=== PATIENT | male | born 1970 | race Caucasian/White ===

== ENCOUNTER 2017-08-07 08:12 | Inpatient (IN) | payer BC ==
[2017-08-07] MEDS ORDERED: Clindamycin/D5W 900 mg/50 ml Premix Bag ONE (08:24)
[2017-08-07] MEDS ORDERED: Levofloxacin 500 mg/D5W 100 ml Premix Bag ONE (08:27)
[2017-08-07] MEDS ORDERED: Heparin 10,000 UNITS/1 ML VIAL 30,000 UNITS in Sodium Chloride 0.9% 1,000 ML FS SCH (08:30)
[2017-08-07 09:08] LABS: #Basophils 0.1 thou/uL (0.0-0.2); #Eosinphils 0.2 thou/uL (0.0-0.7); #Lymphocytes 2.3 thou/uL (1.20-3.40); #Monocytes 0.5 thou/uL (0.11-0.59); #Neutrophils 4.5 thou/uL (1.40-6.50); %Basophils 0.7 % (0.0-1.0); %Eosinophils 2.5 % (0.0-10.0); %Lymphocytes 30.3 % (21.0-51.0); %Monocytes 6.8 % (0.0-10.0); %Neutrophils 59.7 % (42.0-75.0); Hemoglobin 14.7 g/dL (14.0-18.0); Mean Corpuscular HGB CONC 34.8 g/dL (32.0-36.0); Mean Corpuscular Hemoglobin 33.8 pg (27.0-31.0); Mean Corpuscular Volume 97.1 fl (80.0-94.0); Mean Platelet Volume 7.4 fL (7.4-10.4); Platelet Count 242 thou/uL (130-400); RBC Distribution Width 11.4 % (11.5-14.5); Red Blood Cell (RBC) Count 4.35 mill/uL (4.70-6.10); White Blood Cell (WBC) Count 7.5 thou/uL (4.8-10.8)
[2017-08-07 09:12] LABS: Anion Gap 14 mmol/L (10-20); BUN (Urea Nitrogen) 10 mg/dL (8.9-20.6); Calc. Creatinine Clearance 185 mL/min (70-130); Calcium 9.9 mg/dL (7.8-10.44); Carbon Dioxide 25 mmol/L (22-29); Chloride 101 mmol/L (98-107); Estimated GFR-MDRD Greater than 90; Glucose 190 mg/dL (70-105); INR-International Normal Ratio 1.1; PTT 28.3 SEC (22.9-36.1); Potassium 4.4 mmol/L (3.5-5.1); Prothrombin Time 13.8 SEC (12.0-14.7); Sodium 136 mmol/L (136-145)
[2017-08-07] MEDS ORDERED: Midazolam HCl 5 mg/5 ml Vial ONE (09:38)
[2017-08-07] MEDS ORDERED: Fentanyl 100 MCG/2 ML VIAL ONE ×2 (09:38)
[2017-08-07] MEDS ORDERED: Midazolam HCl 2 mg/2 ml Vial ONE (10:00)
--- NOTE | 2017-08-07 10:13 | RAD ---
CHEST ONE VIEW: History: Pre op. Comparison: 08-12-16 FINDINGS: Lungs are hypoinflated. There is elevation of right hemidiaphragm with compressive atelectasis of the right lower lobe. No pneumothorax. Cardiomediastinal silhouette contour is similar. No acute osseous abnormality. IMPRESSION: Lung hypoinflation with elevation of the right hemidiaphragm with compressive atelectasis. No signifi cant change. POS: OFF
[2017-08-07] MEDS ORDERED: Albumin 5% 500 ML ONE (10:55)
[2017-08-07] MEDS ORDERED: Insulin Regular 300 UNITS/3 ML VIAL ONE (11:08)
[2017-08-07] MEDS ORDERED: EPINEPHrine 1 MG/ML AMP ONE (13:04)
[2017-08-07] MEDS ORDERED: Protamine Sulfate 250 MG/25 ML VIAL ONE (14:40)
[2017-08-07] MEDS ORDERED: Heparin 5,000 UNITS/ML VIAL ONE (14:40)
[2017-08-07] MEDS ORDERED: Magnesium 5 GM/10 ML VIAL ONE (14:40)
[2017-08-07] MEDS ORDERED: Papaverine 60 MG/2 ML VIAL ONE (14:40)
[2017-08-07] MEDS ORDERED: Potassium Chloride 60 MEQ/30 ML VIAL ONE (14:40)
[2017-08-07] MEDS ORDERED: Thrombin 5000 UNITS/5 ML VIAL ONE (14:40)
[2017-08-07] MEDS ORDERED: Lidocaine 2% PF 100 mg/5 ml Syringe ONE (14:40)
[2017-08-07] MEDS ORDERED: Esmolol 100 MG/10 ML VIAL ONE (14:40)
[2017-08-07] MEDS ORDERED: Heparin 30,000 units/30 ml VIAL ONE (14:40)
[2017-08-07] MEDS ORDERED: Lidocaine 1% PF 5 ML VIAL ONE (14:40)
[2017-08-07] MEDS ORDERED: PHENYLEPHRINE-NS 100 MCG/ML 10 ML SYRINGE ONE (14:40)
[2017-08-07] MEDS ORDERED: PROPOFOL 200 MG/20 ML VIAL ONE (14:40)
[2017-08-07] MEDS ORDERED: Aminocaproic Acid 5 GM/20 ML VIAL ONE (14:40)
[2017-08-07] MEDS ORDERED: Sodium Bicarb 50 MEQ/50 ML VIAL ONE (14:40)
[2017-08-07] MEDS ORDERED: Cardioplegic Soln 1,000 ML BAG ONE (14:40)
[2017-08-07] MEDS ORDERED: Calcium Chloride 1 GM/10 ML Abboject SYRINGE ONE (14:40)
[2017-08-07] MEDS ORDERED: Morphine 4 MG/ML Carpuject ONE (15:02)
[2017-08-07] MEDS ORDERED: Fentanyl 100 MCG/2 ML VIAL SLOW IVP PRN (15:03)
[2017-08-07] MEDS ORDERED: Nitroglycerin 50 MG/250 ML BOT 250 ML IVPB PRN (15:03)
[2017-08-07] MEDS ORDERED: Acetaminophen 325 MG TAB PO PRN (15:03)
[2017-08-07] MEDS ORDERED: Hetastarch 6% 500 ML 500 ML IVPB PRN (15:03)
[2017-08-07] MEDS ORDERED: Post-Op Insulin Drip Protocol IVPB ONE (15:03)
[2017-08-07] MEDS ORDERED: Promethazine HCl 25 MG/ML VIAL IM PRN (15:03)
[2017-08-07] MEDS ORDERED: Norepinephrine 8 MG/0.9% NS 250 ML IVPB PRN (15:03)
[2017-08-07] MEDS ORDERED: Bisacodyl 10 MG SUPP PR PRN (15:03)
[2017-08-07] MEDS ORDERED: hydrALAZINE 20 MG/ML VIAL SLOW IVP PRN (15:03)
[2017-08-07] MEDS ORDERED: Guaifenesin DM 100-10/5 ML UDCUP PO PRN (15:03)
[2017-08-07] MEDS ORDERED: Bisacodyl 5 MG TAB PO PRN (15:03)
[2017-08-07] MEDS ORDERED: Mag-Al 1200 mg/1200 mg/30 ML UDCUP PO PRN (15:03)
[2017-08-07] MEDS ORDERED: Insulin Regular 300 UNITS/3 ML VIAL SC PRN (15:10)
[2017-08-07 15:11] LABS: #Eosinphils 0.1 thou/uL (0.0-0.7); #Lymphocytes 2.8 thou/uL (1.20-3.40); #Monocytes 1.3 thou/uL (0.11-0.59); #Neutrophils 12.3 thou/uL (1.40-6.50); %Basophils 0.2 % (0.0-1.0); %Eosinophils 0.8 % (0.0-10.0); %Lymphocytes 16.8 % (21.0-51.0); %Monocytes 8.1 % (0.0-10.0); %Neutrophils 74.2 % (42.0-75.0); Hemoglobin 12.6 g/dL (14.0-18.0); Mean Corpuscular HGB CONC 33.6 g/dL (32.0-36.0); Mean Corpuscular Hemoglobin 33.5 pg (27.0-31.0); Mean Corpuscular Volume 99.8 fl (80.0-94.0); Mean Platelet Volume 7.3 fL (7.4-10.4); Platelet Count 194 thou/uL (130-400); RBC Distribution Width 11.5 % (11.5-14.5); Red Blood Cell (RBC) Count 3.76 mill/uL (4.70-6.10); White Blood Cell (WBC) Count 16.6 thou/uL (4.8-10.8)
--- NOTE | 2017-08-07 15:15 | OP ---
DATE OF PROCEDURE: 08/07/2017 PREOPERATIVE DIAGNOSES: Coronary artery disease/diabetes mellitus/tobacco abuse/hypertension/hyperli pidemia. POSTOPERATIVE DIAGNOSES: Coronary artery disease/diabetes mellitus/tobacco abuse/hypertension/hyperl ipidemia. PROCEDURES PERFORMED: Coronary artery bypass grafting x3 - 1. Left internal mammary artery to 1.25 mm LAD - good conduit and target. 2. Reversed saphenous vein to 2.5 mm OM - good conduit and target. 3. Reversed saphenous vein to 1.25 mm acute marginal - good conduit and target. Note, the PDA and P L systems were nonbypassable due to size. The diagonal was nonbypassable due to size. SURGEON: Dr. Milton Gonzalez, Dr. Mcmullen. ANESTHESIA: General endotracheal, Dr. Luke Gao. PUMP TIME: 92 minutes. CROSS-CLAMP TIME: 30 minutes. LOW CORE TEMPERATURE: 32 degrees Celsius. TOE FORMER: Araseli Myers. DRAINS: A 24-Belarusian chest tubes x2. DRIPS: Include epinephrine at 4 mcg per minute. TRANSFUSIONS: None. PROCEDURE IN DETAIL: After consent was obtained, the patient was brought to the operating room and p laced in the supine position on the operating room table. Appropriate anesthetic monitor was placed and general endotracheal anesthesia induced. Chest, abdomen, and legs were prepped and draped in usu al sterile fashion. Greater saphenous vein was harvested from the left lower extremity utilizing in endoscopic technique. Median sternotomy was performed. Left internal mammary artery was harvested a s a pedicle graft. The patient was systemically heparinized. Distal pedicle was divided and infused with papaverine. Thymic fat and pericardium were divided with electrocautery. Pericardial stay sut ures were placed. Aortic and atrial cannulation was performed. After adequate heparinization, retro grade prime was performed. The patient was then placed on cardiopulmonary bypass. Distal targets we re marked. Aortic cross-clamp was applied and antegrade sanguinous cardioplegic arrest obtained. On e liter of antegrade cold [place] cardioplegia was given. Topical cold solution was used. Reversed saphenous vein was anastomosed to the acute marginal end-to-side fashion with running 7-0 Prolene levine ture. Anastomosis was tested and was hemostatic. Reversed saphenous vein was anastomosed to the OM in end-to-side fashion with running 7-0 Prolene suture. Anastomosis was tested and was hemostatic. Mammary artery was brought through a window in the pericardium and anastomosed to the distal LAD in e nd-to-side fashion with running 7-0 Prolene suture. On release of the mammary clamp, there was good hooding in the anastomosis and good distal flow. Pedicle was secured with interrupted 6-0 Prolene levine ture. Cross-clamp was removed and partial occluding clamp placed. Saphenous vein to the OM was anas tomosed to punch site in the aorta. Saphenous vein to the acute marginal was anastomosed to the side wall of the OM graft. Partial occluding clamp was removed and anastomoses were inspected for hemosta sis, which was good. The patient was warmed and weaned from cardiopulmonary bypass. The patient was severely bradycardic, so ventricular pacing wires were placed. The patient was paced at 80 while we were warming, which took an extensive amount of time. The patient achieved temperature greater than 36.5 and sinus rhythm been obtained. Pacemaker was discontinued. The bypass was then terminated. Decannulation was performed and pursestring sutures secured. Protamine was administered. After adeq uate hemostasis had been obtained, vancomycin paste was placed on the sternal edges. A [address] tubes x2 were placed in the mediastinum. The sternum was closed with #7 wire. Sternum was treate d with platelet-rich plasma and wires twisted. The sternum was then treated with platelet-poor plasm a, and closed in multiple layers. The patient tolerated the procedure well, and was transferred to [facility] intensive care unit in stable, but critical condition. Needle, sponge, and instrument counts were all reported as correct at the end of the procedure.
[2017-08-07 15:25] LABS: INR-International Normal Ratio 1.4; PTT 29.2 SEC (22.9-36.1); Prothrombin Time 17.1 SEC (12.0-14.7)
[2017-08-07] MEDS ORDERED: Magnesium 2 GM/NS 0.9% 100 ML 2 GM in Premix Bag 1 BAG IVPB SCH (15:30)
[2017-08-07 15:43] LABS: Anion Gap 13 mmol/L (10-20); BUN (Urea Nitrogen) 9 mg/dL (8.9-20.6); Calc. Creatinine Clearance 187 mL/min (70-130); Calcium 7.6 mg/dL (7.8-10.44); Carbon Dioxide 21 mmol/L (22-29); Chloride 108 mmol/L (98-107); Estimated GFR-MDRD Greater than 90; Glucose 170 mg/dL (70-105); Potassium 3.6 mmol/L (3.5-5.1); Sodium 138 mmol/L (136-145)
--- NOTE | 2017-08-07 15:50 | RAD ---
CHEST ONE VIEW: 08/07/17 HISTORY: Post open heart surgery. COMPARISON: Chest radiograph same day. FINDINGS: The patient is intubated. Endotracheal tube tip is above the level of the kathy approximately 1.5 cm . Atelectatic changes of both lung bases. Thoracostomy drain and mediastinal drains are present. No l arge pneumothorax. IMPRESSION: Expected postoperative findings without complication. POS: OFF
[2017-08-07] MEDS: Potassium Chloride 20 MEQ/100 ML PREMIX BAG IVPB PRN ×2 (16:00→22:30)
[2017-08-07] MEDS: D5 1/2 NS w/20 mEq KCL 1,000 ML IV SCH (16:02)
[2017-08-07] MEDS: Ketorolac Tromethamine 30 MG/ML VIAL IVP SCH ×2 (17:59→22:59)
[2017-08-07] MEDS: Clindamycin/D5W 900 MG in Premix Bag 1 BAG IVPB SCH (19:46)
[2017-08-07 20:16] LABS: Hemoglobin 12.5 g/dL (14.0-18.0)
[2017-08-07] MEDS: Fentanyl 100 MCG/2 ML VIAL SLOW IVP PRN (20:20)
[2017-08-07] MEDS: Ondansetron HCl/PF 4 MG/2 ML Vial IVP PRN (20:25)
[2017-08-07] MEDS: Hydrocortisone Sod Succ/PF 100 mg/2 ml Vial IVP SCH (20:26)
[2017-08-07 20:29] LABS: Potassium 3.8 mmol/L (3.5-5.1)
[2017-08-07] MEDS ORDERED: Famotidine/PF 20 mg/2ml Vial SLOW IVP SCH (21:00)
[2017-08-08] MEDS: Fentanyl 100 MCG/2 ML VIAL SLOW IVP PRN ×3 (01:19→10:17)
[2017-08-08] MEDS: Clindamycin/D5W 900 MG in Premix Bag 1 BAG IVPB SCH ×3 (01:25→14:21)
[2017-08-08] MEDS: HYDROcodone/Acetaminophen 5/325 mg Tablet PO PRN ×3 (03:23→15:25)
[2017-08-08] MEDS: Ondansetron HCl/PF 4 MG/2 ML Vial IVP PRN (03:23)
[2017-08-08 04:17] LABS: #Lymphocytes 1.2 thou/uL (1.20-3.40); #Monocytes 1.1 thou/uL (0.11-0.59); #Neutrophils 12.9 thou/uL (1.40-6.50); %Basophils 0.3 % (0.0-1.0); %Eosinophils 0.1 % (0.0-10.0); %Lymphocytes 7.6 % (21.0-51.0); %Monocytes 7.2 % (0.0-10.0); %Neutrophils 84.9 % (42.0-75.0); Hemoglobin 11.5 g/dL (14.0-18.0); Mean Corpuscular HGB CONC 33.5 g/dL (32.0-36.0); Mean Corpuscular Hemoglobin 33.4 pg (27.0-31.0); Mean Corpuscular Volume 99.6 fl (80.0-94.0); Mean Platelet Volume 7.1 fL (7.4-10.4); Platelet Count 215 thou/uL (130-400); RBC Distribution Width 11.6 % (11.5-14.5); Red Blood Cell (RBC) Count 3.43 mill/uL (4.70-6.10); White Blood Cell (WBC) Count 15.2 thou/uL (4.8-10.8)
[2017-08-08 04:38] LABS: Anion Gap 11 mmol/L (10-20); BUN (Urea Nitrogen) 14 mg/dL (8.9-20.6); Calc. Creatinine Clearance 159 mL/min (70-130); Calcium 8.1 mg/dL (7.8-10.44); Carbon Dioxide 21 mmol/L (22-29); Chloride 109 mmol/L (98-107); Estimated GFR-MDRD 90; Glucose 138 mg/dL (70-105); Potassium 4.3 mmol/L (3.5-5.1); Sodium 137 mmol/L (136-145)
[2017-08-08] MEDS: Ketorolac Tromethamine 30 MG/ML VIAL IVP SCH ×3 (05:40→18:05)
[2017-08-08] MEDS: Budesonide 0.5 MG/2 ML NEB INH SCH ×2 (06:47→18:21)
[2017-08-08] MEDS ORDERED: Dextrose 50% Abboject 50 ML SYRINGE SLOW IVP PRN (07:18)
[2017-08-08] MEDS ORDERED: Dextrose 5% in Water 1,000 ML IV PRN (07:18)
--- NOTE | 2017-08-08 08:16 | RAD ---
PORTABLE CHEST 1 VIEW: DATE; 08/28/17. TIME: 4:57 a.m. HISTORY: Postop open heart surgery. FINDINGS: There has been interval removal of the endotracheal tube since the previous day's exam. Line and tub e placements are unchanged in position. Changes of median sternotomy are again seen. There is incre ased opacity in the left upper and mid lung zones. No pneumothoraces are seen. POS: JOANNE
[2017-08-08] MEDS: ALPRAZolam 0.5 MG TAB PO SCH ×3 (08:22→22:02)
[2017-08-08] MEDS: glyBURIDE 5 MG TAB PO SCH (08:22)
[2017-08-08] MEDS: Famotidine 20 MG TAB PO SCH ×2 (08:22→22:02)
[2017-08-08] MEDS: Hydrocortisone Sod Succ/PF 100 mg/2 ml Vial IVP SCH ×2 (08:22→22:01)
[2017-08-08] MEDS: Aspirin 325 MG TAB PO SCH (08:22)
[2017-08-08] MEDS: HumaLOG 300 UNITS/3 ML VIAL SC PRN ×2 (08:23→12:12)
[2017-08-08] MEDS: Magnesium 2 GM/NS 0.9% 100 ML 2 GM in Premix Bag 1 BAG IVPB SCH (08:23)
[2017-08-08] MEDS: Hydrochlorothiazide 25 MG TAB PO SCH (08:25)
[2017-08-08] MEDS: Insulin Detemir 100 UNITS/ML 30 UNITS in Pre-Filled Syringe 1 EACH SC SCH ×2 (08:41→08:46)
[2017-08-08 08:55] LABS: Cardiac Risk 3.7 (Less than 4.5)
--- NOTE | 2017-08-08 11:59 | CON ---
DATE OF CONSULTATION: 08/08/2017 SERVICE: Pulmonary Medicine. REASON FOR CONSULTATION: Respiratory failure. HISTORY OF PRESENT ILLNESS: The patient is a 46-year-old white male with past medical history significant for chronic respiratory failure. This is not a known diagnosis for him, though he has had difficulty breathing and getting around for quite some time. He was in his usual state of health when he presented to the hospital for an elective outpatient procedure. He underwent a coronary artery bypass graft x3 vessels. Prior to operation, intraoperatively and postoperatively, the patient had extraordinarily high requirements for oxygen. That being said, he is perfectly comfortable and breathing slowly. He denies any current shortness of breath, nausea, vomiting or chest discomfort. The postop course has been otherwise uncomplicated. He is on a very small dose of pressors at this point which is being weaned away aggressively. PAST MEDICAL HISTORY: 1. Type 2 diabetes mellitus. 2. Hypertension. 3. Dyslipidemia. 4. Gastroesophageal reflux disease. 5. Coronary artery disease. PAST SURGICAL HISTORY: 1. Elbow surgery. 2. Coronary artery bypass graft x3 vessels. ALLERGIES: PENICILLIN. MEDICATIONS: List of his inpatient medications was reviewed. No specific updates were made at this time. SOCIAL HISTORY: He smokes half pack a day and has done so for greater than 25 years. He drinks 6 pack on most days. Denies any illicit drugs. He has no exposure to chemicals, asbestos or tuberculosis FAMILY HISTORY: Noncontributory. REVIEW OF SYSTEMS: General, head, ears, eyes, nose, throat, cardiovascular, respiratory, GI, , musculoskeletal, neurologic and skin is negative except as mentioned in the HPI. PHYSICAL EXAMINATION: VITAL SIGNS: Afebrile, pulse 81, blood pressure 100/51, respirations 15, saturation 86% on 40% FiO2. GENERAL: The patient is awake and alert. He is in no apparent distress. LUNGS: Decreased air entry. That being said, I do not appreciate much in the way of a prolonged expiratory phase. There is no wheezing present. Crackles and rhonchi are both evident. HEART: Normal rate, regular. ABDOMEN: Soft, nontender, nondistended, bowel sounds positive. MUSCULOSKELETAL: No cyanosis or clubbing. No pitting in the bilateral lower extremities. NEUROLOGIC: Grossly nonfocal. LABORATORY DATA: WBC 15.2, hemoglobin 11.5, and platelets 215,000. INR 1.4. Basic metabolic profile is essentially unremarkable. Calcium 8.1. Blood sugars ranged from 105-162 IMAGING: Chest x-ray demonstrates evidence of sternotomy. Interval removal of the endotracheal tube. Low lung volumes are present, particularly on the right suggesting a likely area of atelectasis. There is also alveolar infiltrates in the left lung. Right subclavian central venous catheter terminates in good position. Thoracostomy drains are in place. ASSESSMENT: 1. Acute hypoxic respiratory failure. 2. Atelectasis of the right lower lobe. 3. Coronary artery disease, status post coronary artery bypass graft x3 vessels , postop day #1. 4. Type 2 diabetes mellitus, DISCUSSION AND PLAN: I think the patient is probably hypoxemic because of atelectasis. It is interesting that he is quite comfortable with his current condition. We will try to motivate him to move and cough vigorously. Hopefully , his hypoxemia will improve. Pulmonary or Critical Care will continue to follow for the time being. Supportive care including antibiotics, steroids and nebulized medications will be continued. 70 minutes have been devoted to this patient in various activities. I personally reviewed all imaging studies and laboratory data noted within this document. For at least half of this time, I was interacting with the patient at bedside or coordinating care with the care team. For the remainder of the time, I was immediately available to the patient in the hospital unit. VLADIMIR
[2017-08-08] MEDS: D5 1/2 NS w/20 mEq KCL 1,000 ML IV SCH (16:22)
[2017-08-08] MEDS: Rosuvastatin 20 MG TAB PO SCH (22:02)
[2017-08-09] MEDS: Ketorolac Tromethamine 30 MG/ML VIAL IVP SCH ×4 (00:38→17:02)
[2017-08-09 05:10] LABS: #Lymphocytes 2.1 thou/uL (1.20-3.40); #Monocytes 0.6 thou/uL (0.11-0.59); #Neutrophils 7.7 thou/uL (1.40-6.50); %Basophils 0.2 % (0.0-1.0); %Eosinophils 0.1 % (0.0-10.0); %Lymphocytes 19.8 % (21.0-51.0); %Monocytes 5.7 % (0.0-10.0); %Neutrophils 74.2 % (42.0-75.0); Hemoglobin 10.6 g/dL (14.0-18.0); Mean Corpuscular HGB CONC 33.5 g/dL (32.0-36.0); Mean Corpuscular Hemoglobin 33.6 pg (27.0-31.0); Mean Platelet Volume 7.2 fL (7.4-10.4); Platelet Count 151 thou/uL (130-400); RBC Distribution Width 11.6 % (11.5-14.5); Red Blood Cell (RBC) Count 3.17 mill/uL (4.70-6.10); White Blood Cell (WBC) Count 10.3 thou/uL (4.8-10.8)
[2017-08-09 05:24] LABS: Anion Gap 10 mmol/L (10-20); BUN (Urea Nitrogen) 15 mg/dL (8.9-20.6); Calc. Creatinine Clearance 182 mL/min (70-130); Calcium 8.1 mg/dL (7.8-10.44); Carbon Dioxide 24 mmol/L (22-29); Chloride 103 mmol/L (98-107); Estimated GFR-MDRD Greater than 90; Glucose 165 mg/dL (70-105); Sodium 132 mmol/L (136-145)
[2017-08-09] MEDS: HumaLOG 300 UNITS/3 ML VIAL SC PRN ×3 (06:06→17:04)
[2017-08-09] MEDS: Magnesium 2 GM/NS 0.9% 100 ML 2 GM in Premix Bag 1 BAG IVPB SCH (08:00)
[2017-08-09] MEDS: Aspirin 325 MG TAB PO SCH (08:01)
[2017-08-09] MEDS: glyBURIDE 5 MG TAB PO SCH (08:01)
[2017-08-09] MEDS: Hydrocortisone Sod Succ/PF 100 mg/2 ml Vial IVP SCH (08:02)
[2017-08-09] MEDS: Famotidine 20 MG TAB PO SCH ×2 (08:02→20:45)
[2017-08-09] MEDS: HYDROcodone/Acetaminophen 5/325 mg Tablet PO PRN ×2 (08:10→21:58)
[2017-08-09] MEDS: Budesonide 0.5 MG/2 ML NEB INH SCH ×2 (08:56→19:07)
[2017-08-09] MEDS ORDERED: Furosemide 40 MG/4 ML VIAL SLOW IVP SCH (09:15)
[2017-08-09] MEDS ORDERED: metFORMIN 500 MG TAB PO SCH (09:15)
[2017-08-09] MEDS: Hydrochlorothiazide 25 MG TAB PO SCH (09:45)
[2017-08-09] MEDS: ALPRAZolam 0.5 MG TAB PO SCH ×3 (10:38→20:45)
--- NOTE | 2017-08-09 10:53 | PRG ---
DATE OF SERVICE: 08/09/2017 SERVICE: Pulmonary Medicine. INTERVAL HISTORY: The patient has been up out of bed a couple times yesterday and today. He got a dose of Lasix and some Levaquin yesterday. Otherwise, he is returning to his usual state of health. He has no specific complaints of nausea or vomiting. He does not have any dyspnea except when he moves around. Otherwise, there has been no interval change to his condition. Nurse reports no events. PHYSICAL EXAMINATION: VITAL SIGNS: Afebrile, pulse 77, blood pressure 108/60, respirations 19, saturation 92% on 3 liters nasal cannula. GENERAL: Patient is awake, alert, in no apparent distress. LUNGS: Decent air entry. Crackles are present dependently. It worse on the right. HEART: Normal rate, regular. ABDOMEN: Soft, nontender, and nondistended. Bowel sounds are positive. MUSCULOSKELETAL: No cyanosis or clubbing. There is trace pitting in the bilateral lower extremities. NEUROLOGIC: Grossly nonfocal. LABORATORY DATA: WBC 10.3, hemoglobin 10.6, platelets 151,000. INR 1.4. Basic metabolic profile is essentially unremarkable except for sodium of 132. IMAGING: Chest x-ray demonstrates decreased air entry in the right lung. Pulmonary vascular congestion is otherwise identified. There is thoracotomy drain in good position on the left. Mediastinal drain cannot be identified on this film. There has been no significant interval change compared to yesterday. ASSESSMENT: 1. Acute hypoxic respiratory failure, improving. 2. Atelectasis of the right lower lobe. 3. Coronary artery disease, status post coronary artery bypass graft x3 vessels. 4. Postoperative day 2. 5. Type 2 diabetes mellitus. PLAN: We will continue treating possible acute bronchitis with antibiotics, nebulized medications and steroids. The fluoroquinolone will be continued. MTDD
--- NOTE | 2017-08-09 10:54 | RAD ---
SEMIUPRIGHT PORTABLE CHEST: HISTORY: A 46-year-old male with a history of postop open heart. COMPARISON: 08/08/17. FINDINGS: Poor inspiratory effort. Right subclavian catheter and chest tube remain in place. Fairly extensive abnormal alveolar and interstitial opacity changes throughout the left lung and also involving the r ight upper lobe. Very poor inspiratory effort. No significant change from prior study. No pneumoth orax. IMPRESSION: Stable poor inspiratory effort with bilateral alveolar and interstitial opacity changes throughout th e left lung and involving the right upper lobe. Continued short-term followup for clearing or stabil ity. POS: FARTUN
[2017-08-09] MEDS: metFORMIN 500 MG TAB PO SCH (17:06)
[2017-08-09] MEDS: Rosuvastatin 20 MG TAB PO SCH (20:44)
[2017-08-10] MEDS: Ketorolac Tromethamine 30 MG/ML VIAL IVP SCH ×4 (00:33→17:34)
[2017-08-10 04:31] LABS: #Eosinphils 0.1 thou/uL (0.0-0.7); #Lymphocytes 2.5 thou/uL (1.20-3.40); #Monocytes 0.6 thou/uL (0.11-0.59); %Basophils 0.2 % (0.0-1.0); %Eosinophils 1.6 % (0.0-10.0); %Lymphocytes 29.8 % (21.0-51.0); %Monocytes 7.8 % (0.0-10.0); %Neutrophils 60.6 % (42.0-75.0); Hemoglobin 10.6 g/dL (14.0-18.0); Mean Corpuscular HGB CONC 34.1 g/dL (32.0-36.0); Mean Corpuscular Hemoglobin 33.7 pg (27.0-31.0); Mean Platelet Volume 7.2 fL (7.4-10.4); Platelet Count 169 thou/uL (130-400); RBC Distribution Width 11.4 % (11.5-14.5); Red Blood Cell (RBC) Count 3.14 mill/uL (4.70-6.10); White Blood Cell (WBC) Count 8.2 thou/uL (4.8-10.8)
[2017-08-10 05:03] LABS: Anion Gap 7 mmol/L (10-20); BUN (Urea Nitrogen) 16 mg/dL (8.9-20.6); Calc. Creatinine Clearance 186 mL/min (70-130); Calcium 8.2 mg/dL (7.8-10.44); Carbon Dioxide 28 mmol/L (22-29); Chloride 102 mmol/L (98-107); Estimated GFR-MDRD Greater than 90; Glucose 124 mg/dL (70-105); Potassium 3.7 mmol/L (3.5-5.1); Sodium 133 mmol/L (136-145)
[2017-08-10] MEDS: HumaLOG 300 UNITS/3 ML VIAL SC PRN (06:47)
[2017-08-10] MEDS: Budesonide 0.5 MG/2 ML NEB INH SCH ×2 (07:13→18:31)
[2017-08-10] MEDS: metFORMIN 500 MG TAB PO SCH ×2 (07:52→17:55)
[2017-08-10] MEDS: Aspirin 325 MG TAB PO SCH (07:52)
[2017-08-10] MEDS: glyBURIDE 5 MG TAB PO SCH (07:53)
[2017-08-10] MEDS: ALPRAZolam 0.5 MG TAB PO SCH ×3 (07:53→21:42)
[2017-08-10] MEDS: Famotidine 20 MG TAB PO SCH ×2 (07:54→21:37)
[2017-08-10] MEDS: Potassium Chloride 20 MEQ/100 ML PREMIX BAG IVPB PRN (07:54)
[2017-08-10] MEDS: HYDROcodone/Acetaminophen 5/325 mg Tablet PO PRN (09:34)
[2017-08-10] MEDS: Hydrochlorothiazide 25 MG TAB PO SCH ×2 (09:35→12:00)
--- NOTE | 2017-08-10 09:48 | RAD ---
CHEST 1 VIEW: History Heart surgery. Followup. COMPARISON: 08/09/17. FINDINGS: Cardiac silhouette remains magnified and enlarged. Pulmonary vasculature remains engorged. Mediasti num is midline with postoperative changes. Lines and tubes are unchanged in position. Left upper lo be infiltrate and right upper lobe infiltrate are improved compared to the prior study. No evidence of pneumothorax. IMPRESSION: Improved aeration of the upper lobes. Otherwise, stable postoperative appearance of the chest. POS: [facility]
[2017-08-10] MEDS ORDERED: Milk Of Magnesia 30 ML UDCUP PO PRN (10:47)
[2017-08-10] MEDS ORDERED: Bisacodyl 10 MG SUPP PR PRN (10:47)
[2017-08-10] MEDS ORDERED: Bisacodyl 5 MG TAB PO PRN (10:47)
[2017-08-10] MEDS ORDERED: Ondansetron HCl/PF 4 MG/2 ML Vial IVP PRN (10:47)
[2017-08-10] MEDS ORDERED: diphenhydrAMINE 25 MG CAP PO PRN (10:47)
[2017-08-10] MEDS ORDERED: Guaifenesin DM 100-10/5 ML UDCUP PO PRN (10:47)
[2017-08-10] MEDS ORDERED: Nitroglycerin 0.4 MG TAB 1 EACH SL PRN (10:47)
[2017-08-10] MEDS ORDERED: Zolpidem Tartrate 5 MG TAB PO PRN (10:47)
[2017-08-10] MEDS ORDERED: Artificial Tears 18 DROP/0.9 ML EA EYE PRN (10:47)
[2017-08-10] MEDS ORDERED: Mineral Oil ENEMA PR PRN (10:47)
[2017-08-10] MEDS ORDERED: Fentanyl 100 MCG/2 ML VIAL SLOW IVP PRN (10:47)
[2017-08-10] MEDS ORDERED: Dextrose 50% Abboject 50 ML SYRINGE SLOW IVP PRN (11:17)
[2017-08-10] MEDS ORDERED: Insulin Regular 300 UNITS/3 ML VIAL SC PRN (11:17)
[2017-08-10] MEDS ORDERED: Dextrose 5% in Water 1,000 ML IV PRN (11:17)
--- NOTE | 2017-08-10 12:21 | PRG ---
DATE OF SERVICE: 08/10/2017 SERVICE: Pulmonary Medicine. INTERVAL HISTORY: The patient is doing really well from a respiratory standpoint. He denies any cur rent fevers, chills, nausea, vomiting or chest discomfort. He has been weaned down to 1 liter nasal cannula and has no specific complaints. Ever since his chest tubes came out, he has had a much impro erwin air entry and has been able to more meaningfully participate with the incentive spirometer. PHYSICAL EXAMINATION: VITAL SIGNS: Afebrile, pulse 72, blood pressure 112/65, respirations 27, and saturation 94% on room air. GENERAL: The patient is awake, alert, no apparent distress. LUNGS: Decent air entry. There is no prolonged expiratory phase. I do not appreciate any wheezing. HEART: Normal rate, regular. ABDOMEN: Soft, nontender, nondistended. Bowel sounds positive. MUSCULOSKELETAL: No cyanosis or clubbing. No pitting in the bilateral lower extremities. NEUROLOGIC: Grossly nonfocal. LABORATORY DATA: WBC 8.2, hemoglobin 10.6, platelets 169,000. INR 1.4. Basic metabolic profile is otherwise unremarkable. IMAGING: Chest x-ray demonstrates reduced volumes on the right. There is a subclavian central venou s catheter that is in good position. Sternotomy wires in place. Interstitial and middle alveolar in filtrates are scattered throughout the left lung. Otherwise, there has been no significant change co mpared to prior. ASSESSMENT: 1. Acute hypoxic respiratory failure, resolving. 2. Atelectasis of the right lower lobe, suspected. 3. Coronary artery disease, status post coronary artery bypass graft x3 vessels, postop day #3. 4. Type 2 diabetes mellitus. 5. Acute bronchitis. PLAN: We will continue antibiotics and nebulized medications. I am going to hold off on the steroid s. We will continue focus on mobilizing the patient as much as he can tolerate. Hopefully, he can t ransition out of the ICU to telemetry unit today where he can continue working with cardiac rehabilit ation.
[2017-08-10] MEDS: Rosuvastatin 20 MG TAB PO SCH (21:37)
[2017-08-10] MEDS: HYDROcodone/Acetaminophen 10/325 mg Tablet PO PRN (23:40)
[2017-08-11] MEDS: Famotidine 20 MG TAB PO SCH ×3 (00:08→21:53)
[2017-08-11] MEDS: Budesonide 0.5 MG/2 ML NEB INH SCH ×2 (06:42→18:53)
[2017-08-11] MEDS ORDERED: Metolazone 5 MG TAB PO SCH (06:45)
--- NOTE | 2017-08-11 07:31 | PDOC.PULPN ---
Progress Note: Subj/Obj - Subjective Date: 08/11/17 Time: 07:30 Narrative: Chest sore, s/p CABG. Otherwise OK - ROS All systems: reviewed and no additional remarkable complaints except as stated - Objective Allergies/Adverse Reactions: Allergies Allergy/AdvReac Type Severity Reaction Status Date / Time Penicillins Allergy Swollen Verified 08/06/17 10:11 Lips Medications: Current Medications Hydrocodone Bitart/Acetaminophen (Kegley 10/325) 1 tab PO Q4H PRN PRN Reason: Pain Last Admin: 08/10/17 23:40 Dose: 1 tab Al Hydroxide/Mg Hydroxide (Maalox) 30 ml PO Q4H PRN PRN Reason: Indigestion Albuterol/Ipratropium (Duoneb) 3 ml EZPAP [id number] [facility] Last Admin: 08/11/17 06:39 Dose: 3 ml Alprazolam (Xanax) 0.5 mg PO TID [facility] Last Admin: 08/10/17 21:42 Dose: 0.5 mg Artificial Tears (Tears Naturale) 0 drop EA EYE PRN PRN PRN Reason: Dry Eyes Aspirin (Ecotrin) 325 mg PO DAILY [facility] Bisacodyl (Dulcolax) 10 mg PO Q12H PRN PRN Reason: Constipation Bisacodyl (Dulcolax) 10 mg CA Q12H PRN PRN Reason: Constipation Budesonide (Pulmicort Neb Solution) 0.5 mg INH BID-RT [facility] Last Admin: 08/11/17 06:42 Dose: 0.5 mg Dextrose/Water (Dextrose 50%) 25 gm SLOW IVP PRN PRN PRN Reason: PER HYPOGLYCEMIC PROTOCOL Diphenhydramine HCl (Benadryl) 25 mg PO Q6H PRN PRN Reason: Itching & Insomnia or [place] Cristian Famotidine (Pepcid) 20 mg PO BID [facility] Last Admin: 08/10/17 21:37 Dose: 20 mg Glucagon (Glucagon) 1 mg SC PRN PRN PRN Reason: PER HYPOGLYCEMIC PROTOCOL Glyburide (Diabeta) 2.5 mg PO DAILY [facility] Last Admin: 08/10/17 07:53 Dose: 2.5 mg Guaifenesin/Dextromethorphan (Robitussin Dm) 15 ml PO Q4H PRN PRN Reason: Cough Hydrochlorothiazide (Hydrochlorothiazide) 25 mg PO DAILY [facility] Last Admin: 08/10/17 12:00 Dose: 25 mg Dextrose/Water (D5w) 1,000 mls @ 0 mls/hr IV INF PRN; As Directed PRN Reason: PRN HYPOGLYCEMIC PROTOCOL Insulin Human Regular (Humulin R) 0 units SC Q4H PRN; Protocol PRN Reason: POST OP SLIDING SCALE Levofloxacin (Levaquin) 750 mg PO 0600 [facility] Stop: 08/12/17 06:01 Last Admin: 08/11/17 05:22 Dose: 750 mg Magnesium Hydroxide (Milk Of Magnesium) 30 ml PO Q12H PRN PRN Reason: Constipation Metformin HCl (Glucophage) 1,000 mg PO BID-[facility] Last Admin: 08/10/17 17:55 Dose: Not Given Metolazone (Zaroxolyn) 5 mg PO NOW [facility] Stop: 08/11/17 09:00 Mineral Oil (Fleet Mineral Oil) 133 ml CA DAILYPRN PRN PRN Reason: Constipation Nitroglycerin (Nitrostat) 0.4 mg SL Q5MIN PRN PRN Reason: Chest Pain Ondansetron HCl (Zofran) 4 mg IVP Q6H PRN PRN Reason: Nausea/Vomiting Potassium Chloride (Kcl) 20 meq IVPB PRN PRN PRN Reason: K level </= 4.0 Last Admin: 08/10/17 07:54 Dose: 20 meq Rosuvastatin Calcium (Crestor) 20 mg PO QPM [facility] Last Admin: 08/10/17 21:37 Dose: 20 mg Zolpidem Tartrate (Ambien) 5 mg PO HSPRN PRN PRN Reason: Insomnia SEP Reviewed: Yes Vital Signs: Vital Signs Temp 98.4 F 08/11/17 04:00 Pulse 73 08/11/17 06:39 Resp 16 08/11/17 06:39 BP 107/72 08/10/17 12:55 Pulse Ox 99 08/11/17 06:43 Intake & Output 08/10/17 08/11/17 08/11/17 18:59 06:59 18:59 Intake Total 735 540 Output Total 950 500 Balance -215 40 Weight 243 lb 9.773 oz 244 lb 4.355 oz Intake: Intake, IV Amount 95 Potassium Chloride 20 meq 95 IVPB PRN PRN Rx#: [id number] Oral 640 540 Output: Chest Tube Drainage 0 Mediastinal 0 Urine 700 500 Output, Malik 250 Stool 0 Other: Voiding Method Urinal Urinal Progress Note: Exam - Physical Exam Constitutional: NAD HEENT: PERRLA, sclera anicteric Neck: no nodes, no JVD Cardiovascular: RRR, no significant murmur Respiratory: clear to auscultation bilaterally Deviation from normal: Midline sternotomy scar, healing well Gastrointestinal: soft, non-tender, positive bowel sounds Musculoskeletal: edema present Neurological: non-focal, normal sensation, moves all 4 limbs Lymphatic: no nodes Psychiatric: normal affect, A&O x 3 Skin: no rash Progress Note: Data - Labs Result Diagrams: 08/10/17 04:00 08/10/17 04:00 Lab results: Laboratory Results 08/07/17 08/09/17 08/09/17 08:35 11:30 17:05 WBC RBC Hgb Hct MCV MCH MCHC RDW Plt Count MPV Neutrophils % Lymphocytes % Monocytes % Eosinophils % Basophils % Neutrophils # Lymphocytes # Monocytes # Eosinophils # Basophils # Sodium Potassium Chloride Carbon Dioxide Anion Gap BUN Creatinine Estimated GFR (MDRD) Glucose POC Glucose 220 H 151 H Calcium Crossmatch See Detail 08/09/17 08/10/17 08/10/17 20:30 04:00 04:00 WBC 8.2 RBC 3.14 L Hgb 10.6 L Hct 31.1 L MCV 99.0 H MCH 33.7 H MCHC 34.1 RDW 11.4 L Plt Count 169 MPV 7.2 L Neutrophils % 60.6 Lymphocytes % 29.8 Monocytes % 7.8 Eosinophils % 1.6 Basophils % 0.2 Neutrophils # 5.0 Lymphocytes # 2.5 Monocytes # 0.6 H Eosinophils # 0.1 Basophils # 0.0 Sodium 133 L Potassium 3.7 Chloride 102 Carbon Dioxide 28 Anion Gap 7 L BUN 16 Creatinine 0.77 Estimated GFR (MDRD) Greater than 90 Glucose 124 H POC Glucose 139 H Calcium 8.2 Crossmatch 08/10/17 08/10/17 08/10/17 06:45 11:34 21:40 WBC RBC Hgb Hct MCV MCH MCHC RDW Plt Count MPV Neutrophils % Lymphocytes % Monocytes % Eosinophils % Basophils % Neutrophils # Lymphocytes # Monocytes # Eosinophils # Basophils # Sodium Potassium Chloride Carbon Dioxide Anion Gap BUN Creatinine Estimated GFR (MDRD) Glucose POC Glucose 166 H 112 H 111 H Calcium Crossmatch 08/11/17 05:25 WBC RBC Hgb Hct MCV MCH MCHC RDW Plt Count MPV Neutrophils % Lymphocytes % Monocytes % Eosinophils % Basophils % Neutrophils # Lymphocytes # Monocytes # Eosinophils # Basophils # Sodium Potassium Chloride Carbon Dioxide Anion Gap BUN Creatinine Estimated GFR (MDRD) Glucose POC Glucose 90 Calcium Crossmatch Progress Note: A/P - Plan Plan: Assessment: Acute Bronchitis Hypoxemia Atelectasis s/p CABG DM2 Plan: increase activity as tolerated continue nebs wean oxygen Continuing levaquin
[2017-08-11] MEDS: Hydrochlorothiazide 25 MG TAB PO SCH (08:00)
[2017-08-11] MEDS: glyBURIDE 5 MG TAB PO SCH (08:00)
[2017-08-11] MEDS: Aspirin 325 mg Enteric Coated Tablet PO SCH (08:00)
[2017-08-11] MEDS: metFORMIN 500 MG TAB PO SCH ×2 (08:00→17:09)
[2017-08-11] MEDS: ALPRAZolam 0.5 MG TAB PO SCH ×3 (08:31→21:53)
[2017-08-11] MEDS: HYDROcodone/Acetaminophen 10/325 mg Tablet PO PRN ×3 (08:32→17:23)
[2017-08-11] MEDS: Rosuvastatin 20 MG TAB PO SCH (21:53)
[2017-08-12] MEDS: HYDROcodone/Acetaminophen 10/325 mg Tablet PO PRN ×4 (00:10→20:48)
[2017-08-12 05:35] VITALS: BMI 33.9
--- NOTE | 2017-08-12 07:39 | PDOC.PULPN ---
Progress Note: Subj/Obj - Subjective Date: 08/12/17 Time: 07:37 Narrative: No complaints - ROS All systems: reviewed and no additional remarkable complaints except as stated - Objective Allergies/Adverse Reactions: Allergies Allergy/AdvReac Type Severity Reaction Status Date / Time Penicillins Allergy Swollen Verified 08/06/17 10:11 Lips Medications: Current Medications Hydrocodone Bitart/Acetaminophen ([place] 10/325) 1 tab PO Q4H PRN PRN Reason: Pain Last Admin: 08/12/17 00:10 Dose: 1 tab Al Hydroxide/Mg Hydroxide (Maalox) 30 ml PO Q4H PRN PRN Reason: Indigestion Albuterol/Ipratropium (Duoneb) 3 ml EZPAP [id number] [facility] Last Admin: 08/12/17 01:59 Dose: 3 ml Alprazolam (Xanax) 0.5 mg PO TID [facility] Last Admin: 08/11/17 21:53 Dose: 0.5 mg Artificial Tears (Tears Naturale) 0 drop EA EYE PRN PRN PRN Reason: Dry Eyes Aspirin (Ecotrin) 325 mg PO DAILY [facility] Last Admin: 08/11/17 08:00 Dose: 325 mg Bisacodyl (Dulcolax) 10 mg PO Q12H PRN PRN Reason: Constipation Bisacodyl (Dulcolax) 10 mg NJ Q12H PRN PRN Reason: Constipation Budesonide (Pulmicort Neb Solution) 0.5 mg INH BID-RT [facility] Last Admin: 08/11/17 18:53 Dose: 0.5 mg Dextrose/Water (Dextrose 50%) 25 gm SLOW IVP PRN PRN PRN Reason: PER HYPOGLYCEMIC PROTOCOL Diphenhydramine HCl (Benadryl) 25 mg PO Q6H PRN PRN Reason: Itching & Insomnia or [place] Famotidine (Pepcid) 20 mg PO BID [facility] Last Admin: 08/11/17 21:53 Dose: 20 mg Glucagon (Glucagon) 1 mg SC PRN PRN PRN Reason: PER HYPOGLYCEMIC PROTOCOL Glyburide (Diabeta) 2.5 mg PO DAILY [facility] Last Admin: 08/11/17 08:00 Dose: 2.5 mg Guaifenesin/Dextromethorphan (Robitussin Dm) 15 ml PO Q4H PRN PRN Reason: Cough Hydrochlorothiazide (Hydrochlorothiazide) 25 mg PO DAILY [facility] Last Admin: 08/11/17 08:00 Dose: 25 mg Dextrose/Water (D5w) 1,000 mls @ 0 mls/hr IV INF PRN; As Directed PRN Reason: PRN HYPOGLYCEMIC PROTOCOL Insulin Human Regular (Humulin R) 0 units SC Q4H PRN; Protocol PRN Reason: POST OP SLIDING SCALE Magnesium Hydroxide (Milk Of Magnesium) 30 ml PO Q12H PRN PRN Reason: Constipation Last Admin: 08/11/17 12:26 Dose: 30 ml Metformin HCl (Glucophage) 1,000 mg PO BID-[facility] Last Admin: 08/11/17 17:09 Dose: 1,000 mg Mineral Oil (Fleet Mineral Oil) 133 ml NJ DAILYPRN PRN PRN Reason: Constipation Nitroglycerin (Nitrostat) 0.4 mg SL Q5MIN PRN PRN Reason: Chest Pain Ondansetron HCl (Zofran) 4 mg IVP Q6H PRN PRN Reason: Nausea/Vomiting Potassium Chloride (Kcl) 20 meq IVPB PRN PRN PRN Reason: K level </= 4.0 Last Admin: 08/10/17 07:54 Dose: 20 meq Rosuvastatin Calcium (Crestor) 20 mg PO QPM [facility] Last Admin: 08/11/17 21:53 Dose: 20 mg Zolpidem Tartrate (Ambien) 5 mg PO HSPRN PRN PRN Reason: Insomnia SEP Reviewed: Yes Vital Signs: Vital Signs Temp 98.4 F 08/12/17 04:00 Pulse 79 08/11/17 20:00 Resp 20 08/11/17 20:00 BP 122/77 08/11/17 13:12 Pulse Ox 94 L 08/12/17 01:59 Intake & Output 08/11/17 08/12/17 08/12/17 18:59 06:59 18:59 Intake Total 560 480 Output Total 1999 1275 Balance -1440 -795 Weight 236 lb 15.951 oz Intake: Oral 560 480 Output: Urine 1999 1275 Other: Voiding Method Urinal Urinal # Bowel Movements 0 Progress Note: Exam - Physical Exam Constitutional: NAD HEENT: PERRLA, sclera anicteric Neck: no nodes Cardiovascular: RRR Respiratory: clear to auscultation bilaterally Gastrointestinal: soft, non-tender Musculoskeletal: no edema, pulses present Neurological: non-focal, moves all 4 limbs Psychiatric: normal affect, A&O x 3 Skin: no rash Progress Note: Data - Labs Result Diagrams: 08/10/17 04:00 08/10/17 04:00 Progress Note: A/P - Plan Plan: Assessment: Acute Bronchitis Hypoxemia Atelectasis s/p CABG DM2 Plan: increase activity as tolerated continue nebs wean oxygen off if RA O2 sat>92% Continuing levaquin focus on IS
[2017-08-12] MEDS: Budesonide 0.5 MG/2 ML NEB INH SCH ×2 (08:24→19:15)
[2017-08-12] MEDS: Famotidine 20 MG TAB PO SCH ×2 (08:36→20:46)
[2017-08-12] MEDS: Hydrochlorothiazide 25 MG TAB PO SCH (08:37)
[2017-08-12] MEDS: ALPRAZolam 0.5 MG TAB PO SCH ×3 (08:37→20:48)
[2017-08-12] MEDS: Aspirin 325 mg Enteric Coated Tablet PO SCH (08:37)
[2017-08-12] MEDS: glyBURIDE 5 MG TAB PO SCH (08:37)
[2017-08-12] MEDS: metFORMIN 500 MG TAB PO SCH ×2 (08:37→16:44)
[2017-08-12] MEDS: Mag-Al 1200 mg/1200 mg/30 ML UDCUP PO PRN ×2 (08:43→20:52)
[2017-08-12] MEDS: Rosuvastatin 20 MG TAB PO SCH (20:46)
[2017-08-13] MEDS: HYDROcodone/Acetaminophen 10/325 mg Tablet PO PRN ×2 (06:06→13:49)
[2017-08-13] MEDS: Budesonide 0.5 MG/2 ML NEB INH SCH (07:34)
[2017-08-13 08:14] VITALS: TEMP 96.3
[2017-08-13] MEDS: Aspirin 325 mg Enteric Coated Tablet PO SCH (08:19)
[2017-08-13] MEDS: Famotidine 20 MG TAB PO SCH (08:19)
[2017-08-13] MEDS: ALPRAZolam 0.5 MG TAB PO SCH (08:20)
[2017-08-13] MEDS: glyBURIDE 5 MG TAB PO SCH (09:55)
[2017-08-13] MEDS: metFORMIN 500 MG TAB PO SCH (09:55)
--- NOTE | 2017-08-13 13:33 | DIS ---
DATE OF ADMISSION: 08/07/2017 DATE OF DISCHARGE: 08/13/2017 DIAGNOSES: 1. Coronary artery disease. 2. Hypertension. 3. Diabetes mellitus. 4. Hyperlipidemia. PROCEDURES: Coronary artery bypass grafting x3 -- 1. Left internal mammary artery to LAD. 2. Reversed saphenous vein to OM. 3. Reversed saphenous vein to acute marginal. DESCRIPTION OF HOSPITAL STAY: Mr. Spring was electively admitted for bypass. He has done well posto peratively except that he did not quit smoking until he was admitted to the hospital. He has had delilah e pulmonary dysfunction due to his continued tobacco abuse. He has been managed with both IV steroid s and now inhaled Pulmicort, which has greatly improved his oxygen levels. He has had no rhythm dist urbances. He is being discharged home in good condition to follow up with me in [address] Leti lizarraga in a month. DISCHARGE MEDICATIONS: Include: 1. Aspirin 325 mg daily. 2. Pulmicort 0.5 b.i.d. 3. Glyburide 2.5 mg daily. 4. Metformin 1000 mg b.i.d. 5. Hydrochlorothiazide 25 mg daily. 6. Metoprolol 25 mg b.i.d. 7. Crestor 20 mg at bedtime.
[2017-08-13 14:48] VITALS: BP 128/75
[2017-08-18 12:53] LABS: CO2 Tension 38.7 mmHg (35.0-45.0); O2 Tension (PaO2) 126.7 mmHg (80.0-100.0)
[2017-08-18 12:54] LABS: Actual Bicarbonate (HCO3a) 23.6 mEq/L (22-26); Base Excess (BEa) -0.9 mEq/L (0 (+/-) 2.5); Calcium, Ionized 1.1 mmol/L (1.12-1.30); Hematocrit-ABG 35.9 % (42.0-52.0)
[2017-08-18 12:55] LABS: Actual Bicarbonate (HCO3a) 22.8 mEq/L (22-26); Base Excess (BEa) -1.6 mEq/L (0 (+/-) 2.5); CO2 Tension 37.4 mmHg (35.0-45.0); Hematocrit-ABG 36.8 % (42.0-52.0); Hemoglobin (Hb) 12.3 g/dL (14.0-18.0); O2 Tension (PaO2) 107.6 mmHg (80.0-100.0)
[2017-08-18 12:55] LABS: Analyzer IN Cardio OR; Puncture Site ALINE
[2017-08-18 12:56] LABS: Actual Bicarbonate (HCO3v) 27 mEq/L (22-26); Analyzer IN Cardio OR; pH (venous) 7.38 (7.35-7.45)
[2017-08-18 12:56] LABS: Analyzer IN Cardio OR; Calcium, Ionized 1.1 mmol/L (1.12-1.30); Puncture Site ALINE
[2017-08-18 12:57] LABS: Base Excess 1.6 mEq/L (0 (+/- 2.5)); Calcium, Ionized 1.06 mmol/L (1.16-1.32); Chloride (ABG LAB) 101 mmol/L (98-106); Hematocrit-VBG 29.8 % (39-50); Hemoglobin (Hb) 10.4 g/dL (13.1-17.2); Potassium - ABG Lab 3.6 mmol/L (3.70-5.30)
[2017-08-18 12:58] LABS: Actual Bicarbonate (HCO3a) 24.5 mEq/L (22-26); Base Excess (BEa) -0.4 mEq/L (0 (+/-) 2.5); CO2 Tension 41.1 mmHg (35.0-45.0); Hematocrit-ABG 29.9 % (42.0-52.0); Hemoglobin (Hb) 10.5 g/dL (14.0-18.0); O2 Tension (PaO2) 424.9 mmHg (80.0-100.0); pH, Arterial 7.39 (7.35-7.45)
[2017-08-18 12:59] LABS: Analyzer IN Cardio OR; Calcium, Ionized 1.1 mmol/L (1.12-1.30); Puncture Site ALINE
[2017-08-18 13:00] LABS: Actual Bicarbonate (HCO3a) 23.7 mEq/L (22-26); Base Excess (BEa) -0.9 mEq/L (0 (+/-) 2.5); CO2 Tension 39.1 mmHg (35.0-45.0); Hematocrit-ABG 30.1 % (42.0-52.0); Hemoglobin (Hb) 10.6 g/dL (14.0-18.0); O2 Tension (PaO2) 460.5 mmHg (80.0-100.0)
[2017-08-18 13:01] LABS: Analyzer IN Cardio OR; Calcium, Ionized 1.1 mmol/L (1.12-1.30); Puncture Site ALINE
[2017-08-18 13:05] LABS: Actual Bicarbonate (HCO3a) 23.7 mEq/L (22-26); Base Excess (BEa) -1.1 mEq/L (0 (+/-) 2.5); CO2 Tension 39.7 mmHg (35.0-45.0); Hematocrit-ABG 28.2 % (42.0-52.0); Hemoglobin (Hb) 9.7 g/dL (14.0-18.0); O2 Tension (PaO2) 468.8 mmHg (80.0-100.0); pH, Arterial 7.39 (7.35-7.45)
[2017-08-18 13:06] LABS: CO2 Tension 37.7 mmHg (35.0-45.0); O2 Tension (PaO2) 82.1 mmHg (80.0-100.0); pH, Arterial 7.33 (7.35-7.45)
[2017-08-18 13:06] LABS: Analyzer IN Cardio OR; Calcium, Ionized 1.2 mmol/L (1.12-1.30); Puncture Site ALINE
[2017-08-18 13:07] LABS: Actual Bicarbonate (HCO3a) 19.3 mEq/L (22-26); Analyzer IN Cardio OR; Base Excess (BEa) -6.1 mEq/L (0 (+/-) 2.5); Hematocrit-ABG 29.8 % (42.0-52.0); Hemoglobin (Hb) 10.6 g/dL (14.0-18.0); Puncture Site ALINE
--- NOTE | 2017-10-06 21:47 | EKG ---
Test Reason : PREOP Blood Pressure : / mmHG Vent. Rate : 059 BPM Atrial Rate : 059 BPM P-R Int : 140 ms QRS Dur : 110 ms QT Int : 408 ms P-R-T Axes : 038 -31 014 degrees QTc Int : 403 ms Sinus bradycardia Left axis deviation Abnormal ECG Confirmed by CHELLE UREÑA M.D. ([id number]) on 10/06/2017 9:47:12 PM Referred By: Khadra LOPEZ Confirmed By:CHELLE UREÑA M.D.
--- NOTE | 2017-10-06 21:53 | EKG ---
Test Reason : POST CABG Blood Pressure : / mmHG Vent. Rate : 080 BPM Atrial Rate : 080 BPM P-R Int : 156 ms QRS Dur : 120 ms QT Int : 404 ms P-R-T Axes : 042 -76 -09 degrees QTc Int : 465 ms Normal sinus rhythm Left anterior fascicular block Abnormal ECG When compared with ECG of 07-AUG-2017 09:38, (Unconfirmed) QT has lengthened Confirmed by CHELLE UREÑA M.D. ([id number]) on 10/06/2017 9:53:30 PM Referred By: Khadra LOPEZ Confirmed By:CHELLE UREÑA M.D.
== END 2017-08-13 15:22 | disposition home or self-care (01) | DRG 235 ==
LOC: SURG A 08:12 → CCU 14:16 → 2NO 08-12 16:27
PROVIDERS: ADMIT Thoracic Surgery (Cardiothoracic Vascular Surgery); ATTEND Thoracic Surgery (Cardiothoracic Vascular Surgery)
PROC: 02100Z9 Bypass Coronary Artery, One Artery from Left Internal Mammary, Open Approach (ICD-10-PCS; principal; 2017-08-07)
PROC: 021109W Bypass Coronary Artery, Two Arteries from Aorta with Autologous Venous Tissue, Open Approach (ICD-10-PCS; 2017-08-07)
PROC: 06BQ4ZZ Excision of Left Saphenous Vein, Percutaneous Endoscopic Approach (ICD-10-PCS; 2017-08-07)
PROC: 5A1221Z Performance of Cardiac Output, Continuous (ICD-10-PCS; 2017-08-07)
DX: I25.10 Atherosclerotic heart disease of native coronary artery without angina pectoris (principal); J96.01 Acute respiratory failure with hypoxia; J98.11 Atelectasis; E11.9 Type 2 diabetes mellitus without complications; I10 Essential (primary) hypertension; F17.210 Nicotine dependence, cigarettes, uncomplicated; J20.9 Acute bronchitis, unspecified; Z79.84 Long term (current) use of oral hypoglycemic drugs; Z79.82 Long term (current) use of aspirin; E78.2 Mixed hyperlipidemia; K21.0 Gastro-esophageal reflux disease with esophagitis
CPT/HCPCS: 36415; 36416; 36430; 71045; 80048; 80061; 82805; 85025; 85610; 85730; 86850; 86900; 86901; 93005; 93010; 93798; 94002; 94640; J0171; J1642; J1644; J1720; J1815; J1885; J1940; J1956; J2001; J2250; J2270; J2405; J2440; J2704; J2720; J3010; J3370; J3475; J3480; J3490; J7050; J7070; J7620; J7626; P9045; S0017; S0028

== ENCOUNTER 2019-08-30 18:30 | Outpatient (CLI) | payer BC | END 2019-08-30 18:31 | disposition home or self-care (01) | LOC: SLEEPLAB 18:30 | PROVIDERS: ATTEND Family Medicine | DX: G47.33 Obstructive sleep apnea (adult) (pediatric) (principal); R53.83 Other fatigue; K21.9 Gastro-esophageal reflux disease without esophagitis; E66.9 Obesity, unspecified; R06.83 Snoring; I49.9 Cardiac arrhythmia, unspecified; I25.10 Atherosclerotic heart disease of native coronary artery without angina pectoris; E11.9 Type 2 diabetes mellitus without complications; I10 Essential (primary) hypertension; Z68.35 Body mass index [BMI] 35.0-35.9, adult | CPT/HCPCS: 95806 ==

== ENCOUNTER 2019-11-09 09:46 | Outpatient (CLI) | payer BC ==
--- NOTE | 2019-11-09 11:30 | ULT ---
ABDOMINAL ULTRASOUND: DATE: 11/09/2019. COMPARISON: None. HISTORY: Elevated liver function tests. TECHNIQUE: Multiplanar, harper scale, sonographic imaging of the abdomen provided. FINDINGS: Imaged aorta and IVC appear grossly unremarkable. Pancreas is not well assessed secondary to bowel g as. The hepatic parenchyma is heterogeneous and echogenic limiting assessment for focal liver lesion and intrahepatic biliary dilatation. Findings suggest hepatocellular disease, such as hepatic steatosis. Common bile duct measures 5 mm, within normal limits. No gallbladder wall thickening or pericholecystic fluid. The utility mechanic reports a negative Lan's sign. There are a few questionable echogenic foci within the gallbladder lumen which could represent small stones or sludge balls versus artifact. The right kidney measures 11.5 cm in craniocaudal dimension and demonstrates no stone, hydronephrosis , or mass lesion. The left kidney measures 12.2 cm craniocaudal dimension and demonstrates no stone, hydronephrosis, or mass. The spleen measures up to 11.7 cm, within normal limits. IMPRESSION: 1. Increased echogenicity of the hepatic parenchyma limits detailed assessment and suggests hepatoce llular disease, such as hepatic steatosis. 2. Questionable small echogenic foci within the gallbladder as detailed above. The above findings could be best assessed via abdominal MRI if clinically warranted. POS: [facility]
== END 2019-11-09 09:47 | disposition home or self-care (01) ==
LOC: BICULT 09:46
PROVIDERS: ATTEND Internal Medicine Cardiovascular Disease
DX: E78.00 Pure hypercholesterolemia, unspecified (principal); R74.8 Abnormal levels of other serum enzymes; R93.2 Abnormal findings on diagnostic imaging of liver and biliary tract
CPT/HCPCS: 93975

== ENCOUNTER 2019-11-24 07:33 | Outpatient (CLI) | payer BC ==
--- NOTE | 2019-11-24 10:33 | NM ---
EXAM: NM Hida Scan W Drug PROVIDED CLINICAL HISTORY: Other specified diseases of gallbladder, elevated liver function tests. COMPARISON: Abdominal ultrasound 11/09/2019 FINDINGS: There is normal uptake and excretion of radiotracer by the liver. Gallbladder activity is faintly vis ualized by 9 to 10 minutes with increasing activity in the gallbladder imaging up to 60 minutes. Bowel activity is visualized by 18 minutes. After 60 minutes of imaging, 8 ounces of ensure was admin istered by mouth, and a gallbladder ejection fraction was obtained. The bladder ejection fraction is 34% which is at the lower limits of normal. A normal gallbladder ejection fraction is greater than 33%. IMPRESSION: 1. No evidence of cystic or common duct obstruction. 2. Gallbladder ejection fraction of 34% which is at the lower limits of normal. A normal gallbladder ejection fraction is greater than 33%.
== END 2019-11-24 07:34 | disposition home or self-care (01) ==
LOC: NM 07:33
PROVIDERS: ATTEND Internal Medicine Cardiovascular Disease
DX: K82.8 Other specified diseases of gallbladder (principal); K83.9 Disease of biliary tract, unspecified; K21.9 Gastro-esophageal reflux disease without esophagitis; R07.9 Chest pain, unspecified; E11.9 Type 2 diabetes mellitus without complications; I10 Essential (primary) hypertension
CPT/HCPCS: 78227; A9537

== ENCOUNTER 2020-01-17 06:11 | Outpatient (CLI) | payer BC, OTHER ==
[2020-01-17 18:19] LABS: #Basophils 0.1 thou/uL (0.0-0.2); #Eosinphils 0.1 thou/uL (0.0-0.7); #Lymphocytes 2.4 thou/uL (1.20-3.40); #Monocytes 0.8 thou/uL (0.11-0.59); #Neutrophils 5.6 thou/uL (1.40-6.50); %Basophils 0.6 % (0.0-1.0); %Eosinophils 1.1 % (0.0-10.0); %Lymphocytes 26.6 % (21.0-51.0); %Monocytes 8.8 % (0.0-10.0); %Neutrophils 62.9 % (42.0-75.0); Hemoglobin 15.8 g/dL (14.0-18.0); Mean Corpuscular HGB CONC 33.4 g/dL (32.0-36.0); Mean Corpuscular Hemoglobin 31.6 pg (27.0-31.0); Mean Corpuscular Volume 94.5 fL (78.0-98.0); Mean Platelet Volume 7.4 fL (7.4-10.4); Platelet Count 286 thou/uL (130-400); RBC Distribution Width 12.2 % (11.5-14.5); Red Blood Cell (RBC) Count 4.99 mill/uL (4.70-6.10); White Blood Cell (WBC) Count 8.9 thou/uL (4.8-10.8)
[2020-01-17 18:32] LABS: ALT (SGPT) 103 U/L (8-55); AST (SGOT) 53 U/L (5-34); Albumin 4.8 g/dL (3.5-5.0); Alkaline Phosphatase 60 U/L (40-110); Anion Gap 24 mmol/L (10-20); BUN (Urea Nitrogen) 11 mg/dL (8.9-20.6); Bilirubin, Total 0.6 mg/dL (0.2-1.2); Calc. Creatinine Clearance 0 mL/min (70-130); Calcium 10.1 mg/dL (7.8-10.44); Carbon Dioxide 18 mmol/L (22-29); Chloride 99 mmol/L (98-107); Estimated GFR-MDRD 88; Glucose 149 mg/dL (70-105); Potassium 4.6 mmol/L (3.5-5.1); Protein, Total 7.8 g/dL (6.0-8.3); Sodium 136 mmol/L (136-145)
[2020-01-18 14:02] LABS: SARS-CoV-2 MS2 Positive; SARS-CoV-2 N Gene Negative; SARS-CoV-2 S Gene Negative; SARS-CoV-2 orf1ab Negative
== END 2020-01-17 06:12 | disposition home or self-care (01) ==
LOC: LABBT 06:11
PROVIDERS: ATTEND Specialist
DX: Z01.818 Encounter for other preprocedural examination (principal); Z11.59 Encounter for screening for other viral diseases; K80.11 Calculus of gallbladder with chronic cholecystitis with obstruction
CPT/HCPCS: 80053; 85025; 87635; 93005; 93010; U0003

== ENCOUNTER 2020-01-21 08:29 | Day surgery (SDC) | payer BC ==
[2020-01-14 09:44] VITALS: BMI 35.4
[2020-01-21] MEDS ORDERED: Levofloxacin 500 mg/D5W 100 ml Premix Bag ONE (08:53)
[2020-01-21] MEDS ORDERED: Ketorolac Tromethamine 30 MG/ML VIAL ONE (08:53)
[2020-01-21] MEDS ORDERED: Acetaminophen 500 MG TAB ONE (08:53)
[2020-01-21] MEDS ORDERED: Bupivacaine PF 0.5% 30 ML VIAL ONE (09:35)
[2020-01-21] MEDS ORDERED: Lidocaine 1% w/Epinephrine 1:100K 20 ML VIAL ONE (09:35)
[2020-01-21] MEDS ORDERED: Fentanyl 100 MCG/2 ML VIAL ONE ×3 (09:36→11:07)
[2020-01-21] MEDS ORDERED: PHENYLEPHRINE-NS 100 MCG/ML 10 ML SYRINGE ONE (11:41)
[2020-01-21] MEDS ORDERED: Ondansetron PF 4 MG/2 ML Vial ONE (11:41)
[2020-01-21] MEDS ORDERED: PROPOFOL 200 MG/20 ML VIAL ONE (11:41)
[2020-01-21] MEDS ORDERED: EPHEDRINE 25 MG/5 ML SYRINGE ONE ×2 (11:41)
[2020-01-21] MEDS ORDERED: Glycopyrrolate 0.2 MG/ML 5 ML SYRINGE ONE (11:41)
[2020-01-21] MEDS ORDERED: Rocuronium Bromide 10 MG/ML (10ML VIAL) ONE (11:41)
[2020-01-21] MEDS ORDERED: Dexamethasone 20 MG/5 ML VIAL ONE (11:41)
[2020-01-21] MEDS ORDERED: Lidocaine 1% PF 5 ML VIAL ONE (11:41)
--- NOTE | 2020-01-21 12:44 | OP ---
DATE OF PROCEDURE: 01/21/2020 PREOPERATIVE DIAGNOSES: Cholecystitis, cholelithiasis. POSTOPERATIVE DIAGNOSES: Cholecystitis, cholelithiasis. PROCEDURE PERFORMED: Laparoscopic video cholecystectomy. ANESTHESIA: General, local 0.5% Marcaine with epinephrine 30 mL mixed with 1% Xylocaine with epinephrine 20 mL. DESCRIPTION OF PROCEDURE: The patient was taken to the operating room, where under general anesthesia, abdomen was prepared with ChloraPrep and draped in routine fashion. Local anesthetic was infiltrated in the skin and subcutaneous tissue about each port site. Infraumbilical incision made. Pneumoperitoneum to 15 mmHg was obtained with a Veress needle, replaced with a 5 port, video laparoscope inserted. Right subxiphoid incision was made and 11 port placed, right subcostal incision made in midclavicular and anterior axillary line, and 5 port placed. The patient was morbidly obese. There was abundant omentum. Liver was fatty. Fundus of the gallbladder was grasped and retracted cephalad. Infundibulum grasped and retracted laterally. Cystic artery and duct dissected free. Critical view obtained. Cystic artery and duct doubly clipped proximally and divided. Gallbladder dissected free from liver bed, obtaining good hemostasis prior to division of final peritoneal attachments. Gallbladder and gallstones removed, submitted to Pathology. Good hemostasis was assured. Irrigant and pneumoperitoneum were evacuated. All instruments were removed, and all skin incisions were approximated with interrupted subdermal 4-0 Monocryl and Bonnie glue applied. Job ID: [id number]
== END 2020-01-21 14:42 | disposition home or self-care (01) ==
LOC: SDC 08:29
PROVIDERS: ATTEND Specialist
PROC: 0FT44ZZ Resection of Gallbladder, Percutaneous Endoscopic Approach (ICD-10-PCS; principal; 2020-01-21)
DX: K80.12 Calculus of gallbladder with acute and chronic cholecystitis without obstruction (principal); F17.220 Nicotine dependence, chewing tobacco, uncomplicated; E66.01 Morbid (severe) obesity due to excess calories; Z68.35 Body mass index [BMI] 35.0-35.9, adult; Z79.82 Long term (current) use of aspirin; Z79.84 Long term (current) use of oral hypoglycemic drugs; Z79.899 Other long term (current) drug therapy; Z88.0 Allergy status to penicillin
CPT/HCPCS: 88304; J1100; J1885; J1956; J2405; J2704; J3010; S0020

== ENCOUNTER 2023-08-28 13:36 | Outpatient (CLI) | payer BC | END 2023-08-28 13:37 | disposition home or self-care (01) | LOC: BICCT 13:36 | PROVIDERS: ATTEND Internal Medicine | DX: J98.4 Other disorders of lung (principal); I25.10 Atherosclerotic heart disease of native coronary artery without angina pectoris; J98.11 Atelectasis; K76.0 Fatty (change of) liver, not elsewhere classified | CPT/HCPCS: 71250 ==

== ENCOUNTER 2024-03-24 10:46 | Outpatient (CLI) | payer BC | END 2024-03-24 10:47 | disposition home or self-care (01) | LOC: RAD 10:46 | PROVIDERS: ATTEND Internal Medicine | DX: Q79.1 Other congenital malformations of diaphragm (principal); J98.6 Disorders of diaphragm | CPT/HCPCS: 76000 ==

== ENCOUNTER 2024-05-27 09:56 | Outpatient (CLI) | payer BC | END 2024-05-27 09:57 | disposition home or self-care (01) | LOC: CT 09:56 | PROVIDERS: ATTEND Nurse Practitioner Family | DX: I73.9 Peripheral vascular disease, unspecified (principal); M16.12 Unilateral primary osteoarthritis, left hip | CPT/HCPCS: 75635 ==